=== PATIENT | female | born 1930 | race Two or more races ===

== ENCOUNTER 2017-08-03 10:00 | Outpatient (RCR) | payer OTHER | END 2017-08-05 | disposition home or self-care (01) | LOC: PTY 10:00 | DX: M54.5 Low back pain (principal) ==

== ENCOUNTER 2017-08-09 10:00 | Outpatient (RCR) | payer OTHER | END 2017-09-05 | disposition home or self-care (01) | LOC: PTY 10:00 | DX: M54.5 Low back pain (principal) ==

== ENCOUNTER 2018-01-09 09:00 | Outpatient (RCR) | payer OTHER | END 2018-02-02 | disposition home or self-care (01) | LOC: EEVIPCON 09:00 → PTY 09:00 | DX: M54.41 Lumbago with sciatica, right side (principal) ==

== ENCOUNTER 2018-02-04 10:05 | Outpatient (RCR) | payer OTHER | END 2018-03-05 | disposition home or self-care (01) | LOC: PTY 10:05 | DX: M54.41 Lumbago with sciatica, right side (principal) ==

== ENCOUNTER 2018-03-07 09:20 | Outpatient (RCR) | payer OTHER | END 2018-04-05 | disposition home or self-care (01) | LOC: PTY 09:20 | DX: M54.41 Lumbago with sciatica, right side (principal) ==